=== PATIENT | male | born 1960 | race Caucasian/White ===

== ENCOUNTER 2020-04-07 11:13 | Emergency (ER) | payer MEDICAID, OTHER ==
[~2020-04-07] VITALS: Ht 177.8 cm; Wt 86.2 kg
[~2020-04-07 11:13] MED LIST: BENZ1TAB2 PO; HYDR50TA69 PO; IBUP800T24 PO; LURA80TA PO; TRAZ100T3 PO
[2020-04-07 11:28] VITALS: BP 103/68
[2020-04-07] MEDS ORDERED: HYDROcodone-ACET 5/325MG TAB PO ONE (12:00)
== END 2020-04-07 19:25 | disposition home or self-care (01) ==
LOC: EDBD 11:13 → EDUNIT# 11:13 → ER 11:13
DX: M25.552 Pain in left hip (principal); F41.9 Anxiety disorder, unspecified; F32.9 Major depressive disorder, single episode, unspecified; R07.9 Chest pain, unspecified; W18.39XA Other fall on same level, initial encounter; Y93.01 Activity, walking, marching and hiking; Y92.89 Other specified places as the place of occurrence of the external cause; Y99.8 Other external cause status
CPT/HCPCS: 71045; 73502

== ENCOUNTER 2020-04-08 10:08 | Emergency (ER) | payer MEDICAID ==
[~2020-04-08] VITALS: Ht 182.9 cm; Wt 79.4 kg
[2020-04-08 10:46] VITALS: BP 160/82
== END 2020-04-08 11:13 | disposition home or self-care (01) ==
LOC: ER 10:08
DX: M25.552 Pain in left hip (principal); Z76.0 Encounter for issue of repeat prescription

== ENCOUNTER 2020-04-08 19:50 | Emergency (ER) | payer MEDICAID ==
[~2020-04-08] VITALS: Ht 177.8 cm; Wt 81.6 kg
[2020-04-08 20:54] VITALS: BP 100/70
== END 2020-04-09 00:55 | disposition left against medical advice (07) ==
LOC: EDBD 19:50 → ER 19:50
DX: M25.552 Pain in left hip (principal); Z59.0 Homelessness; Z53.21 Procedure and treatment not carried out due to patient leaving prior to being seen by health care provider; Z20.828 Contact with and (suspected) exposure to other viral communicable diseases
CPT/HCPCS: 36415; 71045; 87426

== ENCOUNTER 2020-04-09 11:04 | Inpatient (IN) | payer MEDICAID ==
[~2020-04-09] VITALS: Ht 188 cm; Wt 70.0 kg
[2020-04-09] MEDS ORDERED: SODIUM CHLORIDE 0.9% 1,000 ML IVB ONE (11:45)
[2020-04-09] MEDS ORDERED: SODIUM CHLORIDE 0.9% 2,000 ML IV ONE (12:00)
[2020-04-09 12:36] LABS: Basophils # (auto) 0 10 ^3/uL (0-0.2); Basophils % (auto) 0.1 % (0.0-2.0); Eosinophils # (auto) 0 10 ^3/uL (0-0.8); Eosinophils % (auto) 0.1 % (0.0-7.0); Hematocrit 36.3 % (41.0-53.0); Hemoglobin 12.6 g/dL (13.5-17.5); Lymphocytes # (auto) 0.4 10 ^3/uL (0.4-5.4); Lymphocytes % (auto) 4.5 % (10.0-50.0); Mean Corpuscular Hemoglobin 32.9 pg (28.0-32.0); Mean Corpuscular Hgb Conc. 34.6 g/dL (32.0-36.0); Monocytes # (auto) 1.4 10 ^3/uL (0-1.3); Neutrophils # (auto) 7.5 10 ^3/uL (1.6-8.6); Neutrophils % (auto) 80.3 % (37.0-80.0); Platelet Count (auto) 155 10^3/uL (140-450); Red Blood Cells 3.82 10^6/uL (4.5-5.90); White Blood Cell 9.3 10^3/uL (4.4-10.8)
[2020-04-09 12:52] LABS: Albumin 3.6 g/dL (3.4-5.0); Anion Gap 13 (5-15); Blood Urea Nitrogen 51 mg/dL (7-18); Calcium 8.2 mg/dL (8.5-10.1); Carbon Dioxide 18 mmol/L (21-32); Chloride 100 mmol/L (98-107); Glucose 70 mg/dL (74-106); Potassium 3.6 mmol/L (3.5-5.1); Sodium 131 mmol/L (136-145)
[2020-04-09 13:05] LABS: Alanine Aminotransferase 44 U/L (16-61); Alkaline Phosphatase 51 U/L (45-117); Aspartate Aminotransferase 89 U/L (15-37); Bilirubin, Total 1.5 mg/dL (0.2-1.0); GFR African American 65 mL/min; GFR Non-African American 54 mL/min; Total Protein 6.6 g/dL (6.4-8.2)
[2020-04-09 13:18] LABS: BUN/Creatinine Ratio 35.7
[2020-04-09] MEDS ORDERED: MORPHINE SULFATE 4 MG/ML SYR/VIAL IV ONE (22:45)
[2020-04-09] MEDS ORDERED: ONDANSETRON HCL 4 MG/2 ML VIAL ONE (22:51)
[2020-04-09] MEDS ORDERED: SODIUM CHLORIDE 0.9% 1,000 ML IV ONE (23:00)
[2020-04-09] MEDS ORDERED: ONDANSETRON HCL 4 MG/2 ML VIAL IV ONE (23:15)
[2020-04-09 23:17] LABS: Amphetamine Screen, Urine NEGATIVE (NEGATIVE); Barbiturate Scree,Urine NEGATIVE (NEGATIVE); Benzodiazephine Screen, Urine NEGATIVE (NEGATIVE); Cannabinoid Screen, Urine NEGATIVE (NEGATIVE); Cocaine Screen, Urine NEGATIVE (NEGATIVE); Opiate Scree,Urine NEGATIVE (NEGATIVE); Phencyclidine Screen, Urine NEGATIVE (NEGATIVE)
[2020-04-10] MEDS ORDERED: ONDANSETRON HCL 4 MG/2 ML VIAL IV PRN (00:30)
[2020-04-10] MEDS ORDERED: ALBUMIN 5% 250 ML IV ONE (00:30)
[2020-04-10] MEDS: chlordiazePOXIDE HCL 25 MG CAP PO PRN (02:50)
[2020-04-10 06:57] LABS: Basophils # (auto) 0 10 ^3/uL (0-0.2); Basophils % (auto) 0.5 % (0.0-2.0); Eosinophils # (auto) 0.1 10 ^3/uL (0-0.8); Eosinophils % (auto) 1.2 % (0.0-7.0); Hematocrit 36.4 % (41.0-53.0); Hemoglobin 12.1 g/dL (13.5-17.5); Lymphocytes # (auto) 0.7 10 ^3/uL (0.4-5.4); Lymphocytes % (auto) 14.9 % (10.0-50.0); Mean Corpuscular Hemoglobin 32.1 pg (28.0-32.0); Mean Corpuscular Hgb Conc. 33.3 g/dL (32.0-36.0); Mean Corpuscular Volume 96.4 fL (80.0-100.0); Monocytes # (auto) 0.8 10 ^3/uL (0-1.3); Neutrophils # (auto) 3.3 10 ^3/uL (1.6-8.6); Neutrophils % (auto) 67.4 % (37.0-80.0); Platelet Count (auto) 138 10^3/uL (140-450); Red Blood Cells 3.77 10^6/uL (4.5-5.90); Red Cell Distribution Width 16.1 % (11.8-14.3); White Blood Cell 4.9 10^3/uL (4.4-10.8)
[2020-04-10 07:08] LABS: Potassium 4.1 mmol/L (3.5-5.1)
[2020-04-10 07:11] LABS: BUN/Creatinine Ratio 43.5; Calcium 7.9 mg/dL (8.5-10.1)
[2020-04-10] MEDS: HYDROcodone-ACET 5/325MG TAB PO PRN ×2 (08:23→22:49)
[2020-04-10] MEDS: FAMOTIDINE 20 MG TAB PO SCH ×2 (10:27→22:00)
[2020-04-10] MEDS: ENOXAPARIN SOD 40 MG/0.4 ML SYRINGE SC SCH (10:28)
[2020-04-10] MEDS: FOLIC ACID 1 MG, MULTIPLE VITAMIN 10 ML, MAGNESIUM SULF SDV 50% 8 MEQ, THIAMINE INJ 100... INJ SCH ×5 (16:49)
[2020-04-11] MEDS: ENOXAPARIN SOD 40 MG/0.4 ML SYRINGE SC SCH (08:55)
[2020-04-11] MEDS: FAMOTIDINE 20 MG TAB PO SCH ×2 (08:55→22:29)
[2020-04-11] MEDS: HYDROcodone-ACET 5/325MG TAB PO PRN ×3 (09:08→17:11)
[2020-04-11] MEDS: FOLIC ACID 1 MG, MULTIPLE VITAMIN 10 ML, MAGNESIUM SULF SDV 50% 8 MEQ, THIAMINE INJ 100... INJ SCH ×5 (12:40)
[2020-04-11] MEDS: NICOTINE 21MG/24 HR TOPICAL PATCH TD SCH (13:35)
[2020-04-11] MEDS ORDERED: LORazepam 2MG/ML-1ML VIAL ONE (18:29)
[2020-04-11] MEDS ORDERED: LORazepam 2MG/ML-1ML VIAL IV ONE ×3 (19:00→19:15)
[2020-04-11] MEDS ORDERED: diphenhdrAMINE HCL 50 MG/1 ML VL IV ONE ×2 (19:00→19:15)
[2020-04-11 20:13] VITALS: BP 148/87
[2020-04-11 22:00] VITALS: BP 139/79
[2020-04-11] MEDS: chlordiazePOXIDE HCL 25 MG CAP PO PRN (22:18)
[2020-04-11 22:30] VITALS: BP 148/87
[2020-04-11] MEDS: LORazepam 2MG/ML-1ML VIAL IV PRN (22:30)
[2020-04-12] MEDS: TEMAZEPAM 15 MG CAP PO PRN (00:01)
[2020-04-12] MEDS: LORazepam 2MG/ML-1ML VIAL IV PRN ×4 (02:40→20:46)
[2020-04-12 05:00] VITALS: BP 147/87
[2020-04-12 09:00] VITALS: BP 146/86
[2020-04-12] MEDS: FAMOTIDINE 20 MG TAB PO SCH ×2 (09:31→22:00)
[2020-04-12] MEDS: NICOTINE 21MG/24 HR TOPICAL PATCH TD SCH (09:32)
[2020-04-12] MEDS: ENOXAPARIN SOD 40 MG/0.4 ML SYRINGE SC SCH (09:32)
[2020-04-12] MEDS: chlordiazePOXIDE HCL 25 MG CAP PO SCH ×3 (11:27→23:45)
[2020-04-12] MEDS: ACETAMINOPHEN 325 MG TAB PO PRN (11:28)
[2020-04-12 13:00] VITALS: BP 137/83
[2020-04-12 17:00] VITALS: BP 131/73
[2020-04-12] MEDS: HYDROcodone-ACET 5/325MG TAB PO PRN (20:45)
[2020-04-12 22:00] VITALS: BP 130/87
[2020-04-13 05:00] VITALS: BP 122/70
[2020-04-13] MEDS: chlordiazePOXIDE HCL 25 MG CAP PO SCH ×3 (05:53→17:10)
[2020-04-13 08:30] VITALS: BP 113/77
[2020-04-13] MEDS: FAMOTIDINE 20 MG TAB PO SCH ×2 (09:17→21:50)
[2020-04-13] MEDS: ENOXAPARIN SOD 40 MG/0.4 ML SYRINGE SC SCH (09:17)
[2020-04-13] MEDS: NICOTINE 21MG/24 HR TOPICAL PATCH TD SCH (09:18)
[2020-04-13] MEDS: HYDROcodone-ACET 5/325MG TAB PO PRN (09:18)
[2020-04-13 11:10] LABS: Basophils # (auto) 0 10 ^3/uL (0-0.2); Basophils % (auto) 0.2 % (0.0-2.0); Eosinophils # (auto) 0.4 10 ^3/uL (0-0.8); Eosinophils % (auto) 7.4 % (0.0-7.0); Hematocrit 33.4 % (41.0-53.0); Hemoglobin 11.8 g/dL (13.5-17.5); Lymphocytes # (auto) 0.7 10 ^3/uL (0.4-5.4); Lymphocytes % (auto) 12.7 % (10.0-50.0); Mean Corpuscular Hemoglobin 33.4 pg (28.0-32.0); Mean Corpuscular Hgb Conc. 35.3 g/dL (32.0-36.0); Mean Corpuscular Volume 94.6 fL (80.0-100.0); Monocytes # (auto) 0.9 10 ^3/uL (0-1.3); Monocytes % (auto) 16.1 % (0.0-12.0); Neutrophils # (auto) 3.4 10 ^3/uL (1.6-8.6); Neutrophils % (auto) 63.6 % (37.0-80.0); Nucleated Red Blood Cells % 0.1 %; Platelet Count (auto) 165 10^3/uL (140-450); Red Blood Cells 3.53 10^6/uL (4.5-5.90); Red Cell Distribution Width 15.9 % (11.8-14.3); White Blood Cell 5.4 10^3/uL (4.4-10.8)
[2020-04-13 11:37] LABS: Albumin 2.6 g/dL (3.4-5.0)
[2020-04-13 11:41] LABS: BUN/Creatinine Ratio 14.1; Bilirubin, Total 0.4 mg/dL (0.2-1.0); Total Protein 6.1 g/dL (6.4-8.2)
[2020-04-13 12:30] VITALS: BP 110/61
[2020-04-13] MEDS: HYDROcodone-ACET 7.5/325MG TAB PO PRN ×2 (15:37→21:51)
[2020-04-13 16:51] VITALS: BP 136/83
[2020-04-13] MEDS: TEMAZEPAM 15 MG CAP PO PRN (21:51)
[2020-04-13 22:00] VITALS: BP 101/56
[2020-04-14] MEDS: chlordiazePOXIDE HCL 25 MG CAP PO SCH ×5 (00:29→23:41)
[2020-04-14] MEDS: HYDROcodone-ACET 7.5/325MG TAB PO PRN ×3 (03:45→22:02)
[2020-04-14 05:18] VITALS: BP 109/50
[2020-04-14 06:54] LABS: Hematocrit 34.7 % (41.0-53.0); Hemoglobin 11.9 g/dL (13.5-17.5); Mean Corpuscular Hemoglobin 32.5 pg (28.0-32.0); Mean Corpuscular Hgb Conc. 34.4 g/dL (32.0-36.0); Mean Corpuscular Volume 94.4 fL (80.0-100.0); Platelet Count (auto) 183 10^3/uL (140-450); Red Blood Cells 3.67 10^6/uL (4.5-5.90); Red Cell Distribution Width 16.1 % (11.8-14.3); White Blood Cell 4.9 10^3/uL (4.4-10.8)
[2020-04-14 06:57] LABS: Band Neutrophils % (manual) 0; Basophils % (manual) 0 (0.0-2.0); Blast Cells 0; Metamyelocytes % 0; Myelocytes % 0; Promyelocytes % 0; Reactive Lymphocytes 0
[2020-04-14 07:28] LABS: Eosinophils % (manual) 11 (0-7); Lymphocytes % (manual) 13 (10.0-50.0); Monocytes % (manual) 23 (0-12)
[2020-04-14] MEDS: ACETAMINOPHEN 325 MG TAB PO PRN ×3 (08:01→21:49)
[2020-04-14 09:00] VITALS: BP 105/62
[2020-04-14] MEDS: NICOTINE 21MG/24 HR TOPICAL PATCH TD SCH (11:24)
[2020-04-14] MEDS: FAMOTIDINE 20 MG TAB PO SCH ×2 (11:24→22:00)
[2020-04-14] MEDS: ENOXAPARIN SOD 40 MG/0.4 ML SYRINGE SC SCH (11:24)
[2020-04-14 12:00] VITALS: BP 90/66
[2020-04-14 17:00] VITALS: BP 102/46
[2020-04-14 18:27] VITALS: BP 95/59
[2020-04-14] MEDS: LORazepam 2MG/ML-1ML VIAL IV PRN (19:50)
[2020-04-14 22:00] VITALS: BP 95/108
[2020-04-14] MEDS: TEMAZEPAM 15 MG CAP PO PRN (22:00)
[2020-04-15] MEDS: LORazepam 2MG/ML-1ML VIAL IV PRN (02:39)
[2020-04-15 05:00] VITALS: BP 107/64
[2020-04-15] MEDS: HYDROcodone-ACET 7.5/325MG TAB PO PRN ×2 (05:27→16:20)
[2020-04-15] MEDS: chlordiazePOXIDE HCL 25 MG CAP PO SCH ×3 (05:27→18:00)
[2020-04-15 05:36] LABS: Hemoglobin 11.6 g/dL (13.5-17.5); Mean Corpuscular Hemoglobin 32.2 pg (28.0-32.0); Mean Corpuscular Hgb Conc. 34.2 g/dL (32.0-36.0); Mean Corpuscular Volume 94.2 fL (80.0-100.0); Platelet Count (auto) 209 10^3/uL (140-450); Red Cell Distribution Width 15.8 % (11.8-14.3); White Blood Cell 5.3 10^3/uL (4.4-10.8)
[2020-04-15 06:01] LABS: BUN/Creatinine Ratio 23.4; Calcium 8.9 mg/dL (8.5-10.1); Potassium 3.8 mmol/L (3.5-5.1)
[2020-04-15 06:11] LABS: Band Neutrophils % (manual) 0; Basophils % (manual) 0 (0.0-2.0); Blast Cells 0; Myelocytes % 0; Promyelocytes % 0; Reactive Lymphocytes 0
[2020-04-15 07:16] LABS: Eosinophils % (manual) 4 (0-7); Lymphocytes % (manual) 13 (10.0-50.0); Metamyelocytes % 1; Monocytes % (manual) 19 (0-12)
[2020-04-15 08:00] VITALS: BP 114/71
[2020-04-15] MEDS: ENOXAPARIN SOD 40 MG/0.4 ML SYRINGE SC SCH (10:00)
[2020-04-15] MEDS: FAMOTIDINE 20 MG TAB PO SCH (10:00)
[2020-04-15] MEDS: NICOTINE 21MG/24 HR TOPICAL PATCH TD SCH (10:00)
[2020-04-15] MEDS: ACETAMINOPHEN 325 MG TAB PO PRN (12:10)
[2020-04-15 16:56] VITALS: BP 112/62
[2020-04-15 20:24] VITALS: BP 120/82
== END 2020-04-15 21:55 | disposition home or self-care (01) | DRG 342 ==
LOC: ER 11:04 → EDBD 11:04 → OVERFLOW 11:05 → CENTRAL 04-11 20:00
PROVIDERS: ADMIT Nurse Practitioner; ATTEND Internal Medicine
DX: S92.332A Displaced fracture of third metatarsal bone, left foot, initial encounter for closed fracture (principal); N17.0 Acute kidney failure with tubular necrosis; G93.41 Metabolic encephalopathy; F10.231 Alcohol dependence with withdrawal delirium; I95.9 Hypotension, unspecified; E87.1 Hypo-osmolality and hyponatremia; F20.9 Schizophrenia, unspecified; S32.302A Unspecified fracture of left ilium, initial encounter for closed fracture; N18.9 Chronic kidney disease, unspecified; F17.210 Nicotine dependence, cigarettes, uncomplicated; Z20.828 Contact with and (suspected) exposure to other viral communicable diseases; M16.10 Unilateral primary osteoarthritis, unspecified hip; F32.9 Major depressive disorder, single episode, unspecified; F41.9 Anxiety disorder, unspecified; Y90.8 Blood alcohol level of 240 mg/100 ml or more; F10.229 Alcohol dependence with intoxication, unspecified; W18.39XA Other fall on same level, initial encounter; Y93.89 Activity, other specified; Z71.6 Tobacco abuse counseling; Y92.89 Other specified places as the place of occurrence of the external cause; Z86.73 Personal history of transient ischemic attack (TIA), and cerebral infarction without residual deficits; Z59.0 Homelessness; Y99.8 Other external cause status
CPT/HCPCS: 36415; 70450; 71045; 73502; 73620; 80048; 80053; 80307; 80320; 82150; 83690; 84484; 85007; 85025; 85027; 87040; 87426; 97110; 97116; 97163; 97530; A4565; G0378; J2405

== ENCOUNTER 2020-04-17 12:56 | Emergency (ER) | payer MEDICAID ==
[~2020-04-17] VITALS: Ht 182.9 cm; Wt 79.4 kg
[2020-04-17 13:41] VITALS: BP 110/80
[2020-04-17] MEDS ORDERED: KETOROLAC TROMETH 60MG/2ML VIAL IM ONE (16:00)
== END 2020-04-17 16:18 | disposition home or self-care (01) ==
LOC: ER 12:56
DX: M25.552 Pain in left hip (principal); Z76.0 Encounter for issue of repeat prescription; F41.9 Anxiety disorder, unspecified; F32.9 Major depressive disorder, single episode, unspecified; F17.210 Nicotine dependence, cigarettes, uncomplicated; F10.20 Alcohol dependence, uncomplicated; Z79.899 Other long term (current) drug therapy; Y90.9 Presence of alcohol in blood, level not specified
CPT/HCPCS: 96372; 99283; J1885

== ENCOUNTER 2020-05-30 11:38 | Inpatient (IN) | payer MEDICAID ==
[~2020-05-30] VITALS: Ht 182.9 cm; Wt 74.0 kg
[~2020-05-30 11:38] MED LIST changes: -IBUP800T24 PO; +IBUP800T27 PO
[2020-05-30] MEDS ORDERED: SODIUM CHLORIDE 0.9% 1,000 ML IV ONE ×3 (11:45→17:30)
[2020-05-30] MEDS ORDERED: THIAMINE 100mg/ml INJ (200mg/2ml VIAL) IV ONE (11:45)
[2020-05-30 12:19] LABS: Hematocrit 35.9 % (41.0-53.0); Hemoglobin 12.3 g/dL (13.5-17.5); Mean Corpuscular Hemoglobin 32.9 pg (28.0-32.0); Mean Corpuscular Hgb Conc. 34.1 g/dL (32.0-36.0); Mean Corpuscular Volume 96.4 fL (80.0-100.0); Platelet Count (auto) 219 10^3/uL (140-450); Red Blood Cells 3.73 10^6/uL (4.5-5.90); Red Cell Distribution Width 17.2 % (11.8-14.3); White Blood Cell 4.6 10^3/uL (4.4-10.8)
[2020-05-30 12:32] LABS: Albumin 3.1 g/dL (3.4-5.0); Calcium 7.5 mg/dL (8.5-10.1); Potassium 3.4 mmol/L (3.5-5.1)
[2020-05-30 12:34] LABS: Band Neutrophils % (manual) 0; Basophils % (manual) 0 (0.0-2.0); Blast Cells 0; Metamyelocytes % 0; Myelocytes % 0; Promyelocytes % 0; Reactive Lymphocytes 0
[2020-05-30 12:35] LABS: BUN/Creatinine Ratio 19.2; Bilirubin, Total 0.2 mg/dL (0.2-1.0); Total Protein 6.6 g/dL (6.4-8.2)
[2020-05-30 13:42] LABS: Eosinophils % (manual) 6 (0-7); Lymphocytes % (manual) 17 (10.0-50.0); Monocytes % (manual) 13 (0-12)
[2020-05-30 15:06] LABS: Urine Bacteria FEW /hpf (None Seen); Urine Blood Negative /uL (Negative); Urine Specific Gravity 1.006 (1.001-1.035); Urine WBC <1 /hpf (0 - 3)
[2020-05-30 15:11] LABS: Amphetamine Screen, Urine NEGATIVE (NEGATIVE); Benzodiazephine Screen, Urine NEGATIVE (NEGATIVE); Cannabinoid Screen, Urine NEGATIVE (NEGATIVE); Cocaine Screen, Urine NEGATIVE (NEGATIVE)
[2020-05-30 15:20] LABS: Barbiturate Scree,Urine NEGATIVE (NEGATIVE); Opiate Scree,Urine NEGATIVE (NEGATIVE); Phencyclidine Screen, Urine NEGATIVE (NEGATIVE)
[2020-05-30] MEDS ORDERED: NITROGLYCERIN 0.4 MG SL TAB SL PRN (17:30)
[2020-05-30] MEDS ORDERED: LABETALOL HCL 5 MG/ML 4ML SYRINGE IV PRN (17:30)
[2020-05-30] MEDS ORDERED: ONDANSETRON HCL 4 MG/2 ML VIAL IV PRN (17:30)
[2020-05-30] MEDS ORDERED: TETANUS-DIPTH-ACEL PERTUSSIS 0.5ML SYR Tdap IM ONE (17:30)
[2020-05-30] MEDS ORDERED: MORPHINE SULF INJ 2 MG/ML SYRINGE 1ML IV PRN (17:30)
[2020-05-30] MEDS ORDERED: POTASSIUM CHL 20MEQ/100ML 100 ML IV SCH (17:30)
[2020-05-30] MEDS: SODIUM CHLORIDE 0.9% 1,000 ML IV SCH (18:08)
[2020-05-30] MEDS: POTASSIUM CHL 20MEQ/100ML 100 ML IV SCH ×2 (18:28→21:08)
[2020-05-30] MEDS: MORPHINE SULF INJ 2 MG/ML SYRINGE 1ML IV PRN (20:45)
[2020-05-30] MEDS: LORazepam 2MG/ML-1ML VIAL IV PRN (20:50)
[2020-05-30] MEDS ORDERED: LORazepam 2MG/ML-1ML VIAL IV ONE (22:30)
[2020-05-31 05:40] VITALS: BP 145/86
[2020-05-31] MEDS: SODIUM CHLORIDE 0.9% 1,000 ML IV SCH ×3 (06:45→23:47)
[2020-05-31 09:00] VITALS: BP 153/92
[2020-05-31 09:34] LABS: Basophils # (auto) 0 10 ^3/uL (0-0.2); Basophils % (auto) 0.7 % (0.0-2.0); Eosinophils # (auto) 0.2 10 ^3/uL (0-0.8); Eosinophils % (auto) 4.7 % (0.0-7.0); Hematocrit 31.6 % (41.0-53.0); Hemoglobin 10.7 g/dL (13.5-17.5); Lymphocytes # (auto) 0.6 10 ^3/uL (0.4-5.4); Lymphocytes % (auto) 16.8 % (10.0-50.0); Mean Corpuscular Hemoglobin 32.5 pg (28.0-32.0); Mean Corpuscular Volume 95.6 fL (80.0-100.0); Monocytes # (auto) 0.3 10 ^3/uL (0-1.3); Monocytes % (auto) 9.2 % (0.0-12.0); Neutrophils # (auto) 2.6 10 ^3/uL (1.6-8.6); Neutrophils % (auto) 68.6 % (37.0-80.0); Nucleated Red Blood Cells % 0.1 %; Platelet Count (auto) 173 10^3/uL (140-450); Red Blood Cells 3.31 10^6/uL (4.5-5.90); Red Cell Distribution Width 16.8 % (11.8-14.3); White Blood Cell 3.7 10^3/uL (4.4-10.8)
[2020-05-31] MEDS: THIAMINE 100mg/ml INJ (200mg/2ml VIAL) IV SCH (09:40)
[2020-05-31] MEDS: PANTOPRAZOLE 40 MG/10 ML VIAL INJ IV SCH (09:40)
[2020-05-31] MEDS: ENOXAPARIN SOD 40 MG/0.4 ML SYRINGE SC SCH (09:40)
[2020-05-31 09:44] LABS: Calcium 7.5 mg/dL (8.5-10.1); Potassium 4.1 mmol/L (3.5-5.1)
[2020-05-31 09:48] LABS: BUN/Creatinine Ratio 10.9; Bilirubin, Total 0.3 mg/dL (0.2-1.0); Total Protein 6.2 g/dL (6.4-8.2)
[2020-05-31] MEDS: MORPHINE SULF INJ 2 MG/ML SYRINGE 1ML IV PRN ×2 (11:30→17:53)
[2020-05-31] MEDS ORDERED: DEXTROSE (50%) 50ML SYRG IV PRN (12:30)
[2020-05-31 13:00] VITALS: BP 153/84
[2020-05-31 17:00] VITALS: BP 134/82
[2020-05-31] MEDS: InsuLIN REG 1unit/0.01ml Soln (100units/ml) SC SCH ×2 (17:00→22:00)
[2020-05-31] MEDS: ACCU-CHEK COMFORT CURVE STRIP VI SCH ×2 (17:00→22:05)
[2020-05-31] MEDS: chlordiazePOXIDE HCL 25 MG CAP PO SCH ×2 (17:53→23:47)
[2020-05-31] MEDS: Glucerna Carbsteady SHAKE Vanilla 8oz PO SCH (18:13)
[2020-05-31 22:18] VITALS: BP 139/88
[2020-06-01] MEDS: LORazepam 2MG/ML-1ML VIAL IV PRN (01:21)
[2020-06-01] MEDS: MORPHINE SULF INJ 2 MG/ML SYRINGE 1ML IV PRN ×2 (04:37→20:48)
[2020-06-01 05:25] VITALS: BP 146/89
[2020-06-01] MEDS: chlordiazePOXIDE HCL 25 MG CAP PO SCH ×4 (05:34→23:08)
[2020-06-01] MEDS: InsuLIN REG 1unit/0.01ml Soln (100units/ml) SC SCH ×2 (05:40→11:30)
[2020-06-01] MEDS: ACCU-CHEK COMFORT CURVE STRIP VI SCH ×2 (05:40→11:30)
[2020-06-01 05:45] LABS: Basophils # (auto) 0 10 ^3/uL (0-0.2); Basophils % (auto) 0.5 % (0.0-2.0); Eosinophils # (auto) 0.3 10 ^3/uL (0-0.8); Eosinophils % (auto) 9.1 % (0.0-7.0); Hematocrit 30.1 % (41.0-53.0); Hemoglobin 10.3 g/dL (13.5-17.5); Lymphocytes # (auto) 0.8 10 ^3/uL (0.4-5.4); Lymphocytes % (auto) 22.1 % (10.0-50.0); Mean Corpuscular Hemoglobin 32.5 pg (28.0-32.0); Mean Corpuscular Hgb Conc. 34.2 g/dL (32.0-36.0); Mean Corpuscular Volume 95.1 fL (80.0-100.0); Monocytes # (auto) 0.4 10 ^3/uL (0-1.3); Monocytes % (auto) 11.7 % (0.0-12.0); Neutrophils % (auto) 56.6 % (37.0-80.0); Nucleated Red Blood Cells % 0.2 %; Platelet Count (auto) 134 10^3/uL (140-450); Red Blood Cells 3.16 10^6/uL (4.5-5.90); Red Cell Distribution Width 16.8 % (11.8-14.3); White Blood Cell 3.5 10^3/uL (4.4-10.8)
[2020-06-01 06:11] LABS: Albumin 2.7 g/dL (3.4-5.0); Potassium 3.8 mmol/L (3.5-5.1)
[2020-06-01 06:14] LABS: BUN/Creatinine Ratio 15.4; Bilirubin, Total 0.7 mg/dL (0.2-1.0); Total Protein 5.7 g/dL (6.4-8.2)
[2020-06-01 07:46] VITALS: BP 140/88
[2020-06-01] MEDS: Glucerna Carbsteady SHAKE Vanilla 8oz PO SCH ×3 (08:51→17:50)
[2020-06-01] MEDS: SODIUM CHLORIDE 0.9% 1,000 ML IV SCH ×2 (09:58→19:34)
[2020-06-01] MEDS: THIAMINE 100mg/ml INJ (200mg/2ml VIAL) IV SCH (10:05)
[2020-06-01] MEDS: PANTOPRAZOLE 40 MG/10 ML VIAL INJ IV SCH (10:05)
[2020-06-01] MEDS: ENOXAPARIN SOD 40 MG/0.4 ML SYRINGE SC SCH (10:05)
[2020-06-01] MEDS: MULTIPLE VITAMIN TAB PO SCH (10:05)
[2020-06-01] MEDS: BACITRACIN TOP OINT 1 UD PKG TOP SCH (10:06)
[2020-06-01] MEDS ORDERED: FOLIC ACID 1 MG, MAGNESIUM SULF SDV 50% 8 MEQ, THIAMINE INJ 100 MG in SODIUM CHLORIDE 0... INJ SCH (12:00)
[2020-06-01 12:46] VITALS: BP 137/76
[2020-06-01 16:43] VITALS: BP 161/98
[2020-06-01 22:00] VITALS: BP 141/85
[2020-06-02] MEDS: LORazepam 2MG/ML-1ML VIAL IV PRN (01:06)
[2020-06-02 04:52] VITALS: BP 146/81
[2020-06-02] MEDS: chlordiazePOXIDE HCL 25 MG CAP PO SCH (05:11)
[2020-06-02] MEDS: SODIUM CHLORIDE 0.9% 1,000 ML IV SCH (05:11)
[2020-06-02 07:39] LABS: Potassium 3.9 mmol/L (3.5-5.1)
[2020-06-02 07:50] LABS: Calcium 8.6 mg/dL (8.5-10.1)
[2020-06-02 09:52] LABS: Basophils # (auto) 0 10 ^3/uL (0-0.2); Basophils % (auto) 0.4 % (0.0-2.0); Eosinophils # (auto) 0.3 10 ^3/uL (0-0.8); Eosinophils % (auto) 9.1 % (0.0-7.0); Hematocrit 32.2 % (41.0-53.0); Hemoglobin 11.2 g/dL (13.5-17.5); Lymphocytes # (auto) 0.3 10 ^3/uL (0.4-5.4); Lymphocytes % (auto) 9.4 % (10.0-50.0); Mean Corpuscular Hemoglobin 32.9 pg (28.0-32.0); Mean Corpuscular Hgb Conc. 34.7 g/dL (32.0-36.0); Mean Corpuscular Volume 94.8 fL (80.0-100.0); Monocytes # (auto) 0.4 10 ^3/uL (0-1.3); Monocytes % (auto) 12.1 % (0.0-12.0); Neutrophils # (auto) 2.5 10 ^3/uL (1.6-8.6); Platelet Count (auto) 138 10^3/uL (140-450); Red Cell Distribution Width 16.7 % (11.8-14.3); White Blood Cell 3.6 10^3/uL (4.4-10.8)
[2020-06-02] MEDS: BACITRACIN TOP OINT 1 UD PKG TOP SCH (09:55)
[2020-06-02] MEDS: MULTIPLE VITAMIN TAB PO SCH (09:55)
[2020-06-02] MEDS: THIAMINE 100mg/ml INJ (200mg/2ml VIAL) IV SCH (09:55)
[2020-06-02] MEDS: MORPHINE SULF INJ 2 MG/ML SYRINGE 1ML IV PRN (09:56)
[2020-06-02] MEDS: ENOXAPARIN SOD 40 MG/0.4 ML SYRINGE SC SCH (09:56)
[2020-06-02] MEDS: PANTOPRAZOLE 40 MG/10 ML VIAL INJ IV SCH (09:56)
[2020-06-02] MEDS: Glucerna Carbsteady SHAKE Vanilla 8oz PO SCH (09:56)
[2020-06-02] MEDS ORDERED: NICOTINE 14 MG/24HR TOPICAL PATCH TD ONE (11:30)
[2020-06-03] MEDS ORDERED: NICOTINE 14 MG/24HR TOPICAL PATCH TD SCH (10:00)
[2020-06-08] MEDS ORDERED: ALBUAER3 IN (09:25)
[2020-06-08] MEDS ORDERED: THIA100T5 PO (09:25)
[2020-06-08] MEDS ORDERED: MULT-351 PO (09:25)
== END 2020-06-02 13:18 | disposition left against medical advice (07) | DRG 816 ==
LOC: EDUNIT# 11:38 → EDBD 11:38 → ER 11:38 → TELE 11:39 → DOU IN ADS 05-31 05:40 → TELE-EAST 06-01 17:45
PROVIDERS: ADMIT Family Medicine; ATTEND Internal Medicine
DX: T51.91XA Toxic effect of unspecified alcohol, accidental (unintentional), initial encounter (principal); J96.91 Respiratory failure, unspecified with hypoxia; G92 Toxic encephalopathy; F10.221 Alcohol dependence with intoxication delirium; E44.1 Mild protein-calorie malnutrition; E11.21 Type 2 diabetes mellitus with diabetic nephropathy; Z20.822 Contact with and (suspected) exposure to COVID-19; E86.0 Dehydration; E87.6 Hypokalemia; S00.81XA Abrasion of other part of head, initial encounter; J32.0 Chronic maxillary sinusitis; F17.210 Nicotine dependence, cigarettes, uncomplicated; F31.9 Bipolar disorder, unspecified; Y90.8 Blood alcohol level of 240 mg/100 ml or more; W19.XXXA Unspecified fall, initial encounter; Z79.899 Other long term (current) drug therapy; Z59.0 Homelessness; Z86.73 Personal history of transient ischemic attack (TIA), and cerebral infarction without residual deficits; Y92.89 Other specified places as the place of occurrence of the external cause; Z53.29 Procedure and treatment not carried out because of patient's decision for other reasons
CPT/HCPCS: 36415; 70450; 71045; 73502; 80048; 80053; 80307; 80320; 81001; 82962; 83036; 84443; 84484; 85007; 85025; 85027; 87426; 90715; 93005; C9113; G0378; J2405; J3480; J3490

== ENCOUNTER 2020-06-02 14:23 | Emergency (ER) | payer MEDICAID ==
[~2020-06-02] VITALS: Ht 182.9 cm; Wt 76.2 kg
[2020-06-02] MEDS ORDERED: SODIUM CHLORIDE 0.9% 2,000 ML IV ONE (16:45)
[2020-06-02] MEDS ORDERED: THIAMINE 100mg/ml INJ (200mg/2ml VIAL) IV ONE (16:45)
[2020-06-02] MEDS ORDERED: FOLIC ACID 1 MG, MAGNESIUM SULF SDV 50% 8 MEQ, THIAMINE INJ 100 MG in SODIUM CHLORIDE 0... INJ SCH (16:45)
[2020-06-02 19:53] LABS: Basophils # (auto) 0.1 10 ^3/uL (0-0.2); Basophils % (auto) 1.1 % (0.0-2.0); Eosinophils # (auto) 0.5 10 ^3/uL (0-0.8); Eosinophils % (auto) 11.5 % (0.0-7.0); Hematocrit 34.9 % (41.0-53.0); Hemoglobin 11.8 g/dL (13.5-17.5); Lymphocytes # (auto) 1.2 10 ^3/uL (0.4-5.4); Lymphocytes % (auto) 25.6 % (10.0-50.0); Mean Corpuscular Hemoglobin 31.9 pg (28.0-32.0); Mean Corpuscular Hgb Conc. 33.7 g/dL (32.0-36.0); Mean Corpuscular Volume 94.6 fL (80.0-100.0); Monocytes # (auto) 0.7 10 ^3/uL (0-1.3); Monocytes % (auto) 14.3 % (0.0-12.0); Neutrophils # (auto) 2.2 10 ^3/uL (1.6-8.6); Neutrophils % (auto) 47.5 % (37.0-80.0); Nucleated Red Blood Cells % 0.4 %; Red Blood Cells 3.69 10^6/uL (4.5-5.90); Red Cell Distribution Width 16.8 % (11.8-14.3); White Blood Cell 4.6 10^3/uL (4.4-10.8)
[2020-06-02 20:07] LABS: Magnesium 1.9 mg/dL (1.6-2.6); Potassium 3.6 mmol/L (3.5-5.1)
[2020-06-02 20:11] LABS: BUN/Creatinine Ratio 9.9; Bilirubin, Total 0.3 mg/dL (0.2-1.0); Total Protein 6.9 g/dL (6.4-8.2)
[2020-06-02] MEDS ORDERED: SODIUM CHLORIDE 0.9% 1,000 ML IV ONE (22:15)
[2020-06-02 23:00] VITALS: BP 144/82
[2020-06-08] MEDS ORDERED: THIA100T5 PO (09:25)
[2020-06-08] MEDS ORDERED: ALBUAER3 IN (09:25)
[2020-06-08] MEDS ORDERED: MULT-351 PO (09:25)
== END 2020-06-02 23:00 | disposition home or self-care (01) ==
LOC: ER 14:23
DX: S32.302 Unspecified fracture of left ilium (principal); F10.920 Alcohol use, unspecified with intoxication, uncomplicated; F17.210 Nicotine dependence, cigarettes, uncomplicated; Z79.899 Other long term (current) drug therapy; Z59.0 Homelessness; X58.XXXA Exposure to other specified factors, initial encounter; Y93.89 Activity, other specified; Y92.89 Other specified places as the place of occurrence of the external cause; Y99.8 Other external cause status
CPT/HCPCS: 36415; 71045; 72192; 80053; 80320; 83735; 85025; 96361; 96374; 99285; J3411; J3475; J7030

== ENCOUNTER 2020-06-06 12:15 | Inpatient (IN) | payer MEDICAID ==
[~2020-06-06] VITALS: Ht 172.7 cm; Wt 60.6 kg
[2020-06-06] MEDS ORDERED: SODIUM CHLORIDE 0.9% 1,000 ML IVB ONE (12:30)
[2020-06-06] MEDS ORDERED: SODIUM CHLORIDE 0.9% 2,000 ML IV ONE (13:00)
[2020-06-06] MEDS ORDERED: SODIUM CHLORIDE 0.9% 1,000 ML IV ONE (13:00)
[2020-06-06 13:41] LABS: Lactic Acid w/Reflex 2.9 mmol/L (0.4-2.0)
[2020-06-06 13:43] LABS: Hematocrit 30.1 % (41.0-53.0); Hemoglobin 10.3 g/dL (13.5-17.5); Mean Corpuscular Hemoglobin 32.7 pg (28.0-32.0); Mean Corpuscular Hgb Conc. 34.1 g/dL (32.0-36.0); Platelet Count (auto) 172 10^3/uL (140-450); Red Blood Cells 3.14 10^6/uL (4.5-5.90); Red Cell Distribution Width 17.8 % (11.8-14.3); White Blood Cell 4.1 10^3/uL (4.4-10.8)
[2020-06-06 13:46] LABS: Band Neutrophils % (manual) 0; Basophils % (manual) 0 (0.0-2.0); Blast Cells 0; Metamyelocytes % 0; Myelocytes % 0; Promyelocytes % 0; Reactive Lymphocytes 0
[2020-06-06 13:55] LABS: Albumin 2.9 g/dL (3.4-5.0); Calcium 7.8 mg/dL (8.5-10.1); Potassium 3.7 mmol/L (3.5-5.1)
[2020-06-06 13:59] LABS: BUN/Creatinine Ratio 19.3; Bilirubin, Total 0.2 mg/dL (0.2-1.0); Total Protein 6.2 g/dL (6.4-8.2)
[2020-06-06 14:23] LABS: Eosinophils % (manual) 5 (0-7); Lymphocytes % (manual) 21 (10.0-50.0); Monocytes % (manual) 12 (0-12)
[2020-06-06] MEDS ORDERED: cefTRIAXone 1GM/50ML D5W 50 ML IV ONE (15:15)
[2020-06-06] MEDS ORDERED: NITROGLYCERIN 0.4 MG SL TAB SL PRN (16:00)
[2020-06-06] MEDS ORDERED: MORPHINE SULF INJ 2 MG/ML SYRINGE 1ML IV PRN ×2 (16:00→17:15)
[2020-06-06] MEDS ORDERED: THIAMINE 100mg/ml INJ (200mg/2ml VIAL) IV ONE (16:00)
[2020-06-06] MEDS ORDERED: chlordiazePOXIDE HCL 25 MG CAP PO PRN (16:00)
[2020-06-06 16:14] LABS: Urine Bacteria FEW /hpf (None Seen); Urine Blood Negative /uL (Negative); Urine Specific Gravity 1.003 (1.001-1.035); Urine WBC <1 /hpf (0 - 3)
[2020-06-06] MEDS ORDERED: ALBUTEROL SULF 2.5 MG/0.5ML(0.5%) NEB SOLN NEB PRN (17:15)
[2020-06-06] MEDS ORDERED: TEMAZEPAM 15 MG CAP PO PRN (17:15)
[2020-06-06] MEDS ORDERED: ACETAMINOPHEN 500 MG TAB PO PRN (17:15)
[2020-06-06] MEDS ORDERED: NICOTINE 21MG/24 HR TOPICAL PATCH TD ONE (17:15)
[2020-06-06] MEDS ORDERED: ONDANSETRON HCL 4 MG/2 ML VIAL IV PRN (17:15)
[2020-06-06] MEDS: SODIUM CHLORIDE 0.9% 1,000 ML IV SCH (17:35)
[2020-06-06] MEDS: DOXYCYCLINE 100MG/250ML 250 ML IV SCH (17:35)
[2020-06-06] MEDS: chlordiazePOXIDE HCL 25 MG CAP PO SCH ×2 (17:36→23:58)
[2020-06-06] MEDS: ALBUTEROL SULF 2.5 MG/0.5ML(0.5%) NEB SOLN NEB SCH ×2 (18:00→23:28)
[2020-06-06] MEDS: IPRATROPIUM BROM 0.5 MG/2.5ML INH SOL NEB SCH ×2 (18:00→23:28)
[2020-06-06 19:36] VITALS: BP 118/61
[2020-06-06] MEDS: traMADol HCL 50 MG TAB PO PRN (21:30)
[2020-06-07] MEDS: SODIUM CHLORIDE 0.9% 1,000 ML IV SCH ×2 (03:27→13:50)
[2020-06-07 03:40] VITALS: BP 145/79
[2020-06-07] MEDS: DOXYCYCLINE 100MG/250ML 250 ML IV SCH ×2 (04:39→17:46)
[2020-06-07 05:00] VITALS: BP 145/79
[2020-06-07] MEDS: chlordiazePOXIDE HCL 25 MG CAP PO SCH ×4 (05:42→23:47)
[2020-06-07] MEDS: ALBUTEROL SULF 2.5 MG/0.5ML(0.5%) NEB SOLN NEB SCH ×4 (06:20→23:27)
[2020-06-07] MEDS: IPRATROPIUM BROM 0.5 MG/2.5ML INH SOL NEB SCH ×4 (06:20→23:27)
[2020-06-07 09:00] VITALS: BP 149/90
[2020-06-07] MEDS ORDERED: NICOTINE 21MG/24 HR TOPICAL PATCH TD SCH (10:00)
[2020-06-07] MEDS: THIAMINE 100mg/ml INJ (200mg/2ml VIAL) IV SCH (11:10)
[2020-06-07 12:00] VITALS: BP 143/98
[2020-06-07 16:00] VITALS: BP 149/78
[2020-06-07] MEDS: traMADol HCL 50 MG TAB PO PRN (18:11)
[2020-06-07] MEDS: FOLIC ACID 1 MG, MAGNESIUM SULF SDV 50% 8 MEQ, THIAMINE INJ 100 MG in D5W 5% 1,000 ML INJ SCH (18:13)
[2020-06-07 21:58] VITALS: BP 127/77
[2020-06-08 04:48] VITALS: BP 147/99
[2020-06-08 05:27] LABS: Basophils # (auto) 0 10 ^3/uL (0-0.2); Basophils % (auto) 0.8 % (0.0-2.0); Eosinophils # (auto) 0.2 10 ^3/uL (0-0.8); Eosinophils % (auto) 6.6 % (0.0-7.0); Hematocrit 30.2 % (41.0-53.0); Hemoglobin 10.5 g/dL (13.5-17.5); Lymphocytes # (auto) 0.9 10 ^3/uL (0.4-5.4); Lymphocytes % (auto) 28.1 % (10.0-50.0); Mean Corpuscular Hemoglobin 32.7 pg (28.0-32.0); Mean Corpuscular Hgb Conc. 34.6 g/dL (32.0-36.0); Mean Corpuscular Volume 94.7 fL (80.0-100.0); Monocytes # (auto) 0.7 10 ^3/uL (0-1.3); Neutrophils # (auto) 1.3 10 ^3/uL (1.6-8.6); Neutrophils % (auto) 42.1 % (37.0-80.0); Platelet Count (auto) 136 10^3/uL (140-450); Red Blood Cells 3.19 10^6/uL (4.5-5.90); Red Cell Distribution Width 17.1 % (11.8-14.3); White Blood Cell 3.1 10^3/uL (4.4-10.8)
[2020-06-08 05:36] LABS: Monocytes % (auto) 22.4 % (0.0-12.0)
[2020-06-08] MEDS: DOXYCYCLINE 100MG/250ML 250 ML IV SCH ×2 (05:45→17:31)
[2020-06-08] MEDS: chlordiazePOXIDE HCL 25 MG CAP PO SCH ×3 (06:05→17:56)
[2020-06-08] MEDS: ALBUTEROL SULF 2.5 MG/0.5ML(0.5%) NEB SOLN NEB SCH ×3 (07:02→18:00)
[2020-06-08] MEDS: IPRATROPIUM BROM 0.5 MG/2.5ML INH SOL NEB SCH ×3 (07:02→18:00)
[2020-06-08 08:24] LABS: Calcium 8.4 mg/dL (8.5-10.1); Potassium 3.8 mmol/L (3.5-5.1)
[2020-06-08 08:26] LABS: BUN/Creatinine Ratio 16.4; Magnesium 1.9 mg/dL (1.6-2.6)
[2020-06-08 08:43] LABS: Amphetamine Screen, Urine NEGATIVE (NEGATIVE); Barbiturate Scree,Urine NEGATIVE (NEGATIVE); Benzodiazephine Screen, Urine POSITIVE (NEGATIVE); Cannabinoid Screen, Urine NEGATIVE (NEGATIVE); Cocaine Screen, Urine NEGATIVE (NEGATIVE); Opiate Scree,Urine NEGATIVE (NEGATIVE); Phencyclidine Screen, Urine NEGATIVE (NEGATIVE)
[2020-06-08 09:15] VITALS: BP 130/94
[2020-06-08] MEDS ORDERED: TRAM50TA2 PO (09:25)
[2020-06-08] MEDS ORDERED: ALBUAER3 IN (09:25)
[2020-06-08] MEDS ORDERED: THIA100T5 PO (09:25)
[2020-06-08] MEDS ORDERED: MULT-351 PO (09:25)
[2020-06-08 09:55] VITALS: BP 130/94
[2020-06-08] MEDS: THIAMINE 100mg/ml INJ (200mg/2ml VIAL) IV SCH (10:24)
[2020-06-08] MEDS: FOLIC ACID 1 MG, MAGNESIUM SULF SDV 50% 8 MEQ, THIAMINE INJ 100 MG in D5W 5% 1,000 ML INJ SCH (12:00)
[2020-06-08] MEDS: traMADol HCL 50 MG TAB PO PRN (16:04)
[2020-06-08 16:52] VITALS: BP 144/102
[2020-06-08 22:00] VITALS: BP 143/82
[2020-06-09 05:00] VITALS: BP 158/91
[2020-06-09] MEDS: DOXYCYCLINE 100MG/250ML 250 ML IV SCH (05:15)
[2020-06-09] MEDS: chlordiazePOXIDE HCL 25 MG CAP PO SCH ×2 (05:44)
[2020-06-09] MEDS: ALBUTEROL SULF 2.5 MG/0.5ML(0.5%) NEB SOLN NEB SCH ×5 (07:38→18:16)
[2020-06-09] MEDS: IPRATROPIUM BROM 0.5 MG/2.5ML INH SOL NEB SCH ×5 (07:38→18:16)
[2020-06-09 09:00] VITALS: BP_SYST 84
[2020-06-09 13:00] VITALS: BP 128/78
[2020-06-09 17:18] VITALS: BP 119/79
[2020-06-09 20:13] VITALS: BP 119/79
[2020-06-09 22:00] VITALS: BP 120/89
[2020-06-10 05:00] VITALS: BP 139/90
[2020-06-10] MEDS: IPRATROPIUM BROM 0.5 MG/2.5ML INH SOL NEB SCH ×2 (05:52→11:27)
[2020-06-10] MEDS: ALBUTEROL SULF 2.5 MG/0.5ML(0.5%) NEB SOLN NEB SCH ×2 (05:52→11:27)
[2020-06-10 08:00] VITALS: BP 122/73
[2020-06-10 09:00] VITALS: BP 122/73
[2020-06-10 09:43] LABS: Hepatitis B Surface Antibody Negative
[2020-06-10] MEDS ORDERED: THIAMINE HCL 100 MG TAB PO SCH (10:00)
[2020-06-10] MEDS ORDERED: MULTIPLE VITAMINS W/ MINERALS TAB PO SCH (10:00)
[2020-06-10 10:49] LABS: Hepatitis B Surface Antigen Negative (Negative)
[2020-06-10 11:21] LABS: Hepatitis A Total Antibody Negative
[2020-06-10 12:03] LABS: Hepatitis B Core Total AB Negative; Hepatitis C Antibody Negative (Negative)
[2020-06-10] MEDS ORDERED: NICOTINE 21MG/24 HR TOPICAL PATCH TD ONE (12:15)
[2020-06-10 12:53] VITALS: BP 137/81
[2020-06-10] MEDS: traMADol HCL 50 MG TAB PO PRN (15:25)
[2020-06-10 16:47] VITALS: BP 147/89
== END 2020-06-10 17:46 | disposition home or self-care (01) | DRG 816 ==
LOC: EDBD 12:15 → ER 12:15 → TELE 12:16 → TELE-CENTR 06-07 03:31
PROVIDERS: ADMIT Internal Medicine; ATTEND Internal Medicine
DX: T51.0X1A Toxic effect of ethanol, accidental (unintentional), initial encounter (principal); F10.229 Alcohol dependence with intoxication, unspecified; G92 Toxic encephalopathy; S32.302A Unspecified fracture of left ilium, initial encounter for closed fracture; S32.402A Unspecified fracture of left acetabulum, initial encounter for closed fracture; E44.0 Moderate protein-calorie malnutrition; I95.9 Hypotension, unspecified; F25.9 Schizoaffective disorder, unspecified; E16.2 Hypoglycemia, unspecified; J44.9 Chronic obstructive pulmonary disease, unspecified; D64.9 Anemia, unspecified; I10 Essential (primary) hypertension; Z68.20 Body mass index [BMI] 20.0-20.9, adult; Y90.8 Blood alcohol level of 240 mg/100 ml or more; F17.210 Nicotine dependence, cigarettes, uncomplicated; Z20.822 Contact with and (suspected) exposure to COVID-19; Z59.0 Homelessness; F32.9 Major depressive disorder, single episode, unspecified; F41.9 Anxiety disorder, unspecified; R00.0 Tachycardia, unspecified; W11.XXXA Fall on and from ladder, initial encounter; Y93.89 Activity, other specified; Y99.8 Other external cause status; Y92.89 Other specified places as the place of occurrence of the external cause
CPT/HCPCS: 36415; 71045; 72170; 80048; 80053; 80307; 80320; 81001; 83605; 83735; 83880; 85007; 85025; 85027; 86704; 86706; 86708; 86803; 87040; 87340; 87426; 93306; 94640; 97163; G0378; J0696; J3490

== ENCOUNTER 2021-04-18 09:08 | Emergency (ER) | payer MEDICAID ==
[~2021-04-18] VITALS: Ht 185.4 cm; Wt 72.6 kg
[~2021-04-18 09:08] MED LIST changes: +ALBUAER3 IN; -BENZ1TAB2 PO; -HYDR50TA69 PO; -IBUP800T27 PO; -LURA80TA PO; +MULT-351 PO; +THIA100T5 PO; -TRAZ100T3 PO
[2021-04-18 10:12] LABS: Albumin 3.7 g/dL (3.4-5.0); Calcium 8.6 mg/dL (8.5-10.1); Magnesium 2.2 mg/dL (1.6-2.6); Potassium 4.4 mmol/L (3.5-5.1)
[2021-04-18 10:18] LABS: BUN/Creatinine Ratio 17.6; Bilirubin, Total 0.4 mg/dL (0.2-1.0); Total Protein 7.9 g/dL (6.4-8.2)
[2021-04-18 10:19] LABS: Basophils # (auto) 0.1 10 ^3/uL (0-0.2); Basophils % (auto) 1.5 % (0.0-2.0); Eosinophils # (auto) 0.2 10 ^3/uL (0-0.8); Eosinophils % (auto) 2.7 % (0.0-7.0); Hematocrit 42.7 % (41.0-53.0); Hemoglobin 14.5 g/dL (13.5-17.5); Lymphocytes # (auto) 1.2 10 ^3/uL (0.4-5.4); Lymphocytes % (auto) 20.7 % (10.0-50.0); Mean Corpuscular Hemoglobin 31.1 pg (28.0-32.0); Mean Corpuscular Hgb Conc. 34.1 g/dL (32.0-36.0); Mean Corpuscular Volume 91.3 fL (80.0-100.0); Monocytes # (auto) 0.7 10 ^3/uL (0-1.3); Monocytes % (auto) 12.7 % (0.0-12.0); Neutrophils # (auto) 3.6 10 ^3/uL (1.6-8.6); Neutrophils % (auto) 62.4 % (37.0-80.0); Nucleated Red Blood Cells % 0.1 %; Red Blood Cells 4.68 10^6/uL (4.5-5.90); Red Cell Distribution Width 16.3 % (11.8-14.3); White Blood Cell 5.8 10^3/uL (4.4-10.8)
[2021-04-18 16:11] VITALS: BP 139/79
== END 2021-04-18 16:14 | disposition home or self-care (01) ==
LOC: ER 09:08
DX: K52.9 Noninfective gastroenteritis and colitis, unspecified (principal); F17.210 Nicotine dependence, cigarettes, uncomplicated; Z59.00 Homelessness unspecified; Z79.899 Other long term (current) drug therapy; Z20.822 Contact with and (suspected) exposure to COVID-19
CPT/HCPCS: 36415; 71045; 80053; 83735; 84484; 85025; 87426; 93005

== ENCOUNTER 2021-10-05 10:45 | Emergency (ER) | payer MEDICAID ==
[~2021-10-05] VITALS: Ht 167.6 cm; Wt 71.7 kg
[2021-10-05 10:45] VITALS: BP 142/90
[~2021-10-05 10:45] MED LIST changes: -CEPH-509 PO; -CLIN150C PO; -PERCOT PO; -cefTRIAXone SOD 1,000 MG VL IM ONE
[2021-10-05] MEDS ORDERED: SODIUM CHLORIDE 0.9% 500 ML IV ONE (11:45)
[2021-10-05] MEDS ORDERED: SODIUM CHLORIDE 0.9% 1,000 ML IV ONE (11:45)
[2021-10-05] MEDS ORDERED: CLINDAMYCIN 900MG IV 50 ML IV ONE (15:30)
[2021-10-05 15:41] LABS: Basophils # (auto) 0 10 ^3/uL (0-0.2); Basophils % (auto) 0.5 % (0.0-2.0); Eosinophils # (auto) 0.1 10 ^3/uL (0-0.8); Hematocrit 38.7 % (41.0-53.0); Hemoglobin 13.5 g/dL (13.5-17.5); Lymphocytes # (auto) 0.8 10 ^3/uL (0.4-5.4); Lymphocytes % (auto) 14.5 % (10.0-50.0); Mean Corpuscular Hemoglobin 31.3 pg (28.0-32.0); Mean Corpuscular Hgb Conc. 34.9 g/dL (32.0-36.0); Mean Corpuscular Volume 89.6 fL (80.0-100.0); Monocytes # (auto) 0.6 10 ^3/uL (0-1.3); Monocytes % (auto) 10.5 % (0.0-12.0); Neutrophils # (auto) 4.2 10 ^3/uL (1.6-8.6); Neutrophils % (auto) 73.5 % (37.0-80.0); Red Blood Cells 4.32 10^6/uL (4.5-5.90); Red Cell Distribution Width 15.9 % (11.8-14.3); White Blood Cell 5.6 10^3/uL (4.4-10.8)
[2021-10-05 15:59] LABS: Albumin 4.3 g/dL (3.4-5.0); BUN/Creatinine Ratio 9.7; Calcium 9.1 mg/dL (8.5-10.1); Magnesium 2.3 mg/dL (1.6-2.6); Potassium 4.3 mmol/L (3.5-5.1)
[2021-10-05 16:01] LABS: Bilirubin, Total 0.4 mg/dL (0.2-1.0); Total Protein 8.3 g/dL (6.4-8.2)
[2021-10-06] MEDS ORDERED: CLIN150C PO (15:19)
== END 2021-10-05 16:27 | disposition left against medical advice (07) ==
LOC: EDBD 10:45 → ER 10:45 → EDUNIT# 10:45 → ER 16:27
DX: L03.031 Cellulitis of right toe (principal); J44.9 Chronic obstructive pulmonary disease, unspecified; F17.210 Nicotine dependence, cigarettes, uncomplicated; Z79.899 Other long term (current) drug therapy
CPT/HCPCS: 36415; 71046; 73700; 80053; 83735; 85025; 93005; 96361; 96365; 99285; J3490; J7030; J7040

== ENCOUNTER → 2021-10-05 | Emergency (ER) | payer MEDICAID ==
[~2021-10-05] VITALS: Ht 182.9 cm; Wt 71.2 kg
[~2021-10-05] MED LIST changes: +CEPH-509 PO; +CLIN150C PO; +PERCOT PO; +cefTRIAXone SOD 1,000 MG VL IM ONE
[2021-10-05 21:11] VITALS: BP 99/55
== END | disposition home or self-care (01) ==
LOC: ER 20:18
DX: L03.031 Cellulitis of right toe (principal); J44.9 Chronic obstructive pulmonary disease, unspecified; F17.210 Nicotine dependence, cigarettes, uncomplicated; Z59.00 Homelessness unspecified
CPT/HCPCS: 96372; 99283; J0696

== ENCOUNTER 2021-10-06 10:04 | Emergency (ER) | payer MEDICAID ==
[~2021-10-06] VITALS: Ht 182.9 cm; Wt 71.7 kg
[2021-10-06 10:30] VITALS: BP 114/63
[2021-10-06] MEDS ORDERED: SODIUM CHLORIDE 0.9% 500 ML IV ONE (11:30)
[2021-10-06] MEDS ORDERED: CLINDAMYCIN 600MG IV 50 ML IV ONE (11:45)
[2021-10-06 12:25] LABS: Basophils # (auto) 0 10 ^3/uL (0-0.2); Basophils % (auto) 0.4 % (0.0-2.0); Eosinophils # (auto) 0 10 ^3/uL (0-0.8); Eosinophils % (auto) 0.2 % (0.0-7.0); Hematocrit 37.4 % (41.0-53.0); Hemoglobin 12.6 g/dL (13.5-17.5); Lymphocytes # (auto) 0.7 10 ^3/uL (0.4-5.4); Lymphocytes % (auto) 16.4 % (10.0-50.0); Mean Corpuscular Hemoglobin 30.3 pg (28.0-32.0); Mean Corpuscular Hgb Conc. 33.6 g/dL (32.0-36.0); Mean Corpuscular Volume 89.9 fL (80.0-100.0); Monocytes # (auto) 0.4 10 ^3/uL (0-1.3); Monocytes % (auto) 9.6 % (0.0-12.0); Neutrophils # (auto) 3.2 10 ^3/uL (1.6-8.6); Neutrophils % (auto) 73.4 % (37.0-80.0); Nucleated Red Blood Cells % 0.1 %; Red Blood Cells 4.16 10^6/uL (4.5-5.90); White Blood Cell 4.4 10^3/uL (4.4-10.8)
[2021-10-06 12:42] LABS: INR 0.99 (0.9-1.15); Partial Thromboplastin Time 27.1 sec (23.6-33.0)
[2021-10-06 12:49] LABS: Albumin 3.9 g/dL (3.4-5.0); Calcium 8.9 mg/dL (8.5-10.1); Potassium 4.2 mmol/L (3.5-5.1)
[2021-10-06 12:52] LABS: BUN/Creatinine Ratio 13.2; Bilirubin, Total 0.3 mg/dL (0.2-1.0); Total Protein 8.2 g/dL (6.4-8.2)
[2021-10-06] MEDS ORDERED: CLIN150C PO (15:19)
[2021-10-08] MEDS ORDERED: PERCOT PO (21:40)
[2021-10-08] MEDS ORDERED: CEPH-509 PO (21:40)
== END 2021-10-07 01:59 | disposition home or self-care (01) ==
LOC: ER 10:17
DX: L03.031 Cellulitis of right toe (principal); J44.9 Chronic obstructive pulmonary disease, unspecified; F17.210 Nicotine dependence, cigarettes, uncomplicated; Z59.00 Homelessness unspecified; Z79.899 Other long term (current) drug therapy; Z20.822 Contact with and (suspected) exposure to COVID-19
CPT/HCPCS: 36415; 73700; 80053; 85025; 85610; 85652; 85730

== ENCOUNTER → 2021-10-07 | Emergency (ER) | payer MEDICAID ==
[~2021-10-07] VITALS: Ht 182.9 cm; Wt 71.7 kg
[~2021-10-07] MED LIST changes: +CEPH-509 PO; +CLIN150C PO; +PERCOT PO
[2021-10-07 08:26] VITALS: BP 116/75
== END | disposition left against medical advice (07) ==
LOC: ER 08:19
DX: M79.671 Pain in right foot (principal); Z53.21 Procedure and treatment not carried out due to patient leaving prior to being seen by health care provider

== ENCOUNTER 2021-10-08 16:54 | Emergency (ER) | payer MEDICAID ==
[~2021-10-08] VITALS: Ht 182.9 cm; Wt 71.7 kg
[~2021-10-08 16:54] MED LIST changes: -CEPH-509 PO; -PERCOT PO
[2021-10-08 17:37] VITALS: BP 119/73
[2021-10-08] MEDS ORDERED: OXYCODONE W/ ACETAMINOPHEN 5/325MG TABLET PO ONE (21:15)
[2021-10-08] MEDS ORDERED: DexAMETHasone SOD PHOS 10MG/1ML VIAL INJ IM ONE (21:15)
[2021-10-08] MEDS ORDERED: CEPH-509 PO (21:40)
[2021-10-08] MEDS ORDERED: PERCOT PO (21:40)
[2021-10-17] MEDS ORDERED: PERCOT PO (11:27)
[2021-10-17] MEDS ORDERED: DOXY-332 PO (11:30)
== END 2021-10-08 22:16 | disposition home or self-care (01) ==
LOC: ER 16:54
DX: S90.929A Unspecified superficial injury of unspecified foot, initial encounter (principal); J44.9 Chronic obstructive pulmonary disease, unspecified; F41.9 Anxiety disorder, unspecified; F32.9 Major depressive disorder, single episode, unspecified; X58.XXXA Exposure to other specified factors, initial encounter; Y93.89 Activity, other specified; Y92.89 Other specified places as the place of occurrence of the external cause; Y99.8 Other external cause status
CPT/HCPCS: 96372; 99283; J1100

== ENCOUNTER → 2021-10-08 | Emergency (ER) | payer MEDICAID ==
[~2021-10-08] VITALS: Ht 182.9 cm; Wt 71.7 kg
[2021-10-08 05:12] VITALS: BP 133/85
== END | disposition left against medical advice (07) ==
LOC: ER 04:37
DX: M79.671 Pain in right foot (principal); Z53.21 Procedure and treatment not carried out due to patient leaving prior to being seen by health care provider

== ENCOUNTER 2021-10-09 02:30 | Emergency (ER) | payer MEDICAID | END 2021-10-09 02:54 | disposition left against medical advice (07) | LOC: ER 02:30 | DX: Z79.891 Long term (current) use of opiate analgesic (principal); Z53.21 Procedure and treatment not carried out due to patient leaving prior to being seen by health care provider ==

== ENCOUNTER → 2021-10-09 | Emergency (ER) | payer MEDICAID ==
[~2021-10-09] MED LIST changes: +CEPH-509 PO; +PERCOT PO
== END | disposition left against medical advice (07) ==
LOC: ER 04:08
DX: M79.671 Pain in right foot (principal); Z53.21 Procedure and treatment not carried out due to patient leaving prior to being seen by health care provider

== ENCOUNTER 2021-10-10 01:17 | Emergency (ER) | payer MEDICAID ==
[~2021-10-10] VITALS: Ht 162.6 cm; Wt 59.0 kg
[2021-10-10 01:40] VITALS: BP 128/85
== END 2021-10-10 05:51 | disposition left against medical advice (07) ==
LOC: EDBD 01:17 → ER 01:17
DX: M25.512 Pain in left shoulder (principal); Z53.21 Procedure and treatment not carried out due to patient leaving prior to being seen by health care provider
CPT/HCPCS: 73030

== ENCOUNTER → 2021-10-10 | Emergency (ER) | payer MEDICAID | END | disposition left against medical advice (07) | LOC: ER 23:52 | DX: M79.673 Pain in unspecified foot (principal); Z53.21 Procedure and treatment not carried out due to patient leaving prior to being seen by health care provider ==

== ENCOUNTER 2021-10-11 22:32 | Inpatient (IN) | payer MEDICAID ==
[~2021-10-11] VITALS: Ht 182.9 cm; Wt 73.8 kg
[2021-10-12] MEDS ORDERED: METOCLOPRAMIDE HCL 5MG/ml INJ 2ml VIAL IV ONE (08:45)
[2021-10-12] MEDS ORDERED: SODIUM CHLORIDE 0.9% 500 ML IV ONE (08:45)
[2021-10-12] MEDS ORDERED: KETOROLAC TROMETH 30 MG/ML 1ML VIAL IV ONE (08:45)
[2021-10-12] MEDS ORDERED: SODIUM CHLORIDE 0.9% 1,000 ML IV ONE (08:45)
[2021-10-12 09:22] LABS: Basophils # (auto) 0 10 ^3/uL (0-0.2); Basophils % (auto) 0.3 % (0.0-2.0); Eosinophils # (auto) 0 10 ^3/uL (0-0.8); Eosinophils % (auto) 0.1 % (0.0-7.0); Hemoglobin 12.7 g/dL (13.5-17.5); Lymphocytes % (auto) 15.8 % (10.0-50.0); Mean Corpuscular Hemoglobin 30.2 pg (28.0-32.0); Mean Corpuscular Hgb Conc. 33.3 g/dL (32.0-36.0); Mean Corpuscular Volume 90.5 fL (80.0-100.0); Monocytes # (auto) 0.7 10 ^3/uL (0-1.3); Monocytes % (auto) 11.2 % (0.0-12.0); Neutrophils # (auto) 4.6 10 ^3/uL (1.6-8.6); Neutrophils % (auto) 72.6 % (37.0-80.0); Red Cell Distribution Width 16.2 % (11.8-14.3); White Blood Cell 6.4 10^3/uL (4.4-10.8)
[2021-10-12 09:41] LABS: Albumin 3.8 g/dL (3.4-5.0); Calcium 8.4 mg/dL (8.5-10.1); Magnesium 2.2 mg/dL (1.6-2.6); Potassium 3.6 mmol/L (3.5-5.1)
[2021-10-12 09:44] LABS: Bilirubin, Total 0.9 mg/dL (0.2-1.0); Total Protein 7.8 g/dL (6.4-8.2)
[2021-10-12] MEDS ORDERED: MORPHINE SULFATE INJ 2 MG/ml SYRG IV PRN (11:15)
[2021-10-12] MEDS ORDERED: PIPERACILLIN-TAZO 4.5GM 100 ML IV ONE (11:15)
[2021-10-12] MEDS ORDERED: ONDANSETRON HCL 4 MG/2 ML VIAL IV PRN (11:15)
[2021-10-12] MEDS ORDERED: ACETAMINOPHEN 325 MG TAB PO PRN (11:15)
[2021-10-12] MEDS ORDERED: VANCOMYCIN PER PHARMACY 0 MG IV SCH (11:15)
[2021-10-12] MEDS ORDERED: NITROGLYCERIN 0.4 MG SL TAB SL PRN (11:15)
[2021-10-12] MEDS ORDERED: DOCUSATE SOD 100 MG CAP PO PRN (11:15)
[2021-10-12] MEDS: PIPERACILLIN-TAZOB 3.375GM 100 ML IV SCH ×3 (12:02→23:51)
[2021-10-12] MEDS: SODIUM CHLORIDE 0.9% 1,000 ML IV SCH (12:02)
[2021-10-12] MEDS: VANCOMYCIN 1GM/250ML 250 ML IV SCH ×2 (15:27→21:49)
[2021-10-12 17:00] VITALS: BP 133/78
[2021-10-12] MEDS ORDERED: ALBUTEROL SULF 2.5 MG/0.5ML(0.5%) NEB SOLN NEB PRN (21:00)
[2021-10-12] MEDS: ASCORBIC ACID 500 MG TAB PO SCH (21:49)
[2021-10-12] MEDS: HYDROcodone-ACET 5/325MG TAB PO PRN (21:50)
[2021-10-12 22:00] VITALS: BP 142/80
[2021-10-13 03:00] VITALS: BP 142/80
[2021-10-13] MEDS: SODIUM CHLORIDE 0.9% 1,000 ML IV SCH ×2 (03:55→22:32)
[2021-10-13 04:45] LABS: Urine Bacteria NONE SEEN /hpf (None Seen); Urine Blood Negative /uL (Negative); Urine Specific Gravity 1.013 (1.001-1.035); Urine WBC <1 /hpf (0 - 3)
[2021-10-13 05:00] VITALS: BP 144/85
[2021-10-13] MEDS: PIPERACILLIN-TAZOB 3.375GM 100 ML IV SCH ×4 (05:14→23:52)
[2021-10-13] MEDS: HYDROcodone-ACET 5/325MG TAB PO PRN ×3 (05:15→16:09)
[2021-10-13 05:20] LABS: Basophils # (auto) 0 10 ^3/uL (0-0.2); Basophils % (auto) 0.4 % (0.0-2.0); Eosinophils # (auto) 0.2 10 ^3/uL (0-0.8); Eosinophils % (auto) 4.3 % (0.0-7.0); Hematocrit 34.7 % (41.0-53.0); Hemoglobin 11.7 g/dL (13.5-17.5); Lymphocytes # (auto) 0.7 10 ^3/uL (0.4-5.4); Lymphocytes % (auto) 16.6 % (10.0-50.0); Mean Corpuscular Hemoglobin 30.6 pg (28.0-32.0); Mean Corpuscular Hgb Conc. 33.7 g/dL (32.0-36.0); Mean Corpuscular Volume 90.8 fL (80.0-100.0); Monocytes # (auto) 0.3 10 ^3/uL (0-1.3); Neutrophils % (auto) 71.7 % (37.0-80.0); Red Blood Cells 3.82 10^6/uL (4.5-5.90); White Blood Cell 4.3 10^3/uL (4.4-10.8)
[2021-10-13 05:38] LABS: Albumin 2.8 g/dL (3.4-5.0); Potassium 3.4 mmol/L (3.5-5.1)
[2021-10-13 05:44] LABS: BUN/Creatinine Ratio 15.3; Bilirubin, Total 0.9 mg/dL (0.2-1.0); Total Protein 6.3 g/dL (6.4-8.2)
[2021-10-13] MEDS: VANCOMYCIN 1GM/250ML 250 ML IV SCH ×3 (07:35→22:32)
[2021-10-13 08:48] VITALS: BP 126/74
[2021-10-13] MEDS: ASCORBIC ACID 500 MG TAB PO SCH ×2 (09:22→22:21)
[2021-10-13] MEDS: ENOXAPARIN SOD 40 MG/0.4 ML SYRINGE SC SCH (09:22)
[2021-10-13 12:35] VITALS: BP 132/80
[2021-10-13 16:27] VITALS: BP 136/77
[2021-10-13 21:35] VITALS: BP 140/79
[2021-10-14 04:37] VITALS: BP 152/87
[2021-10-14] MEDS: HYDROcodone-ACET 5/325MG TAB PO PRN ×4 (04:39→21:30)
[2021-10-14] MEDS: PIPERACILLIN-TAZOB 3.375GM 100 ML IV SCH ×4 (05:38→23:57)
[2021-10-14] MEDS: VANCOMYCIN 1GM/250ML 250 ML IV SCH ×3 (06:44→20:01)
[2021-10-14 06:47] LABS: Basophils # (auto) 0 10 ^3/uL (0-0.2); Basophils % (auto) 0.3 % (0.0-2.0); Eosinophils # (auto) 0.3 10 ^3/uL (0-0.8); Eosinophils % (auto) 7.4 % (0.0-7.0); Hemoglobin 11.7 g/dL (13.5-17.5); Lymphocytes # (auto) 0.6 10 ^3/uL (0.4-5.4); Lymphocytes % (auto) 12.5 % (10.0-50.0); Mean Corpuscular Hemoglobin 31.6 pg (28.0-32.0); Mean Corpuscular Hgb Conc. 34.5 g/dL (32.0-36.0); Mean Corpuscular Volume 91.7 fL (80.0-100.0); Monocytes # (auto) 0.5 10 ^3/uL (0-1.3); Monocytes % (auto) 11.1 % (0.0-12.0); Neutrophils # (auto) 3.1 10 ^3/uL (1.6-8.6); Neutrophils % (auto) 68.7 % (37.0-80.0); Red Blood Cells 3.71 10^6/uL (4.5-5.90); Red Cell Distribution Width 15.7 % (11.8-14.3); White Blood Cell 4.6 10^3/uL (4.4-10.8)
[2021-10-14 06:56] LABS: Albumin 2.6 g/dL (3.4-5.0); Calcium 7.8 mg/dL (8.5-10.1); Potassium 3.5 mmol/L (3.5-5.1)
[2021-10-14 06:59] LABS: BUN/Creatinine Ratio 11.3; Phosphorus 3.5 mg/dL (2.5-4.90)
[2021-10-14 09:00] VITALS: BP 143/84
[2021-10-14] MEDS: ASCORBIC ACID 500 MG TAB PO SCH ×2 (09:09→21:30)
[2021-10-14] MEDS: ENOXAPARIN SOD 40 MG/0.4 ML SYRINGE SC SCH (09:10)
[2021-10-14 13:03] VITALS: BP 135/84
[2021-10-14] MEDS: SODIUM CHLORIDE 0.9% 1,000 ML IV SCH (14:00)
[2021-10-14 17:00] VITALS: BP 149/89
[2021-10-15 05:02] VITALS: BP 152/78
[2021-10-15] MEDS: VANCOMYCIN 1GM/250ML 250 ML IV SCH ×2 (05:27→16:31)
[2021-10-15] MEDS: SODIUM CHLORIDE 0.9% 1,000 ML IV SCH ×2 (05:27→22:35)
[2021-10-15] MEDS: PIPERACILLIN-TAZOB 3.375GM 100 ML IV SCH ×3 (06:42→18:30)
[2021-10-15 09:01] LABS: Partial Thromboplastin Time 27.3 sec (23.6-33.0)
[2021-10-15 09:09] VITALS: BP 150/91
[2021-10-15] MEDS ORDERED: ceFAZolin 1GM/50ML 100 ML IV ONE (10:25)
[2021-10-15] MEDS ORDERED: ceFAZolin 1GM VL ONE (10:39)
[2021-10-15] MEDS ORDERED: MEPERIDINE HCL (50 MG/ML) 1 ML VIAL ONE (10:50)
[2021-10-15] MEDS ORDERED: MIDAZOLAM HCL 2MG/2ML 2ml VIAL (1mg/ml) ONE (10:50)
[2021-10-15] MEDS ORDERED: fentaNYL CITRATE 100 MCG/2 ML VL ONE (10:50)
[2021-10-15] MEDS ORDERED: MIDAZOLAM HCL 2MG/2ML 2ml VIAL (1mg/ml) IV PRN (11:00)
[2021-10-15] MEDS ORDERED: ONDANSETRON HCL 4 MG/2 ML VIAL IV PRN (11:00)
[2021-10-15] MEDS ORDERED: HYDROmorphone HCL 2 MG/ML VL/or syr IV PRN (11:00)
[2021-10-15] MEDS ORDERED: ePHEDrine SULFATE 50 MG/ML AMP IV PRN (11:00)
[2021-10-15] MEDS ORDERED: MORPHINE SULFATE 4 MG/ML SYR/VIAL IV PRN (11:00)
[2021-10-15] MEDS ORDERED: hydrALAZINE HCL 20 MG/ML VL IV PRN (11:00)
[2021-10-15] MEDS ORDERED: ACCU-CHEK COMFORT CURVE STRIP VI ONE (11:00)
[2021-10-15] MEDS ORDERED: LABETALOL HCL 5 MG/ML 4ML SYRINGE IV PRN (11:00)
[2021-10-15] MEDS ORDERED: DexAMETHasone SOD PHOS 10MG/1ML VIAL INJ ONE (11:11)
[2021-10-15] MEDS ORDERED: PROPOFOL 10 MG/ML 20 ML IV ONE (11:11)
[2021-10-15] MEDS: ASCORBIC ACID 500 MG TAB PO SCH ×2 (13:03→21:04)
[2021-10-15] MEDS: ENOXAPARIN SOD 40 MG/0.4 ML SYRINGE SC SCH (13:03)
[2021-10-15 16:14] VITALS: BP 131/87
[2021-10-15] MEDS: HYDROcodone-ACET 5/325MG TAB PO PRN ×2 (16:47→21:04)
[2021-10-15 17:04] VITALS: BP 131/87
[2021-10-15 22:00] VITALS: BP 136/83
[2021-10-16] MEDS: PIPERACILLIN-TAZOB 3.375GM 100 ML IV SCH ×2 (00:13→05:25)
[2021-10-16] MEDS: HYDROcodone-ACET 5/325MG TAB PO PRN ×2 (01:18→09:36)
[2021-10-16] MEDS: VANCOMYCIN 1GM/250ML 250 ML IV SCH (02:08)
[2021-10-16 05:00] VITALS: BP 125/80
[2021-10-16 09:17] VITALS: BP 148/90
[2021-10-16] MEDS: ASCORBIC ACID 500 MG TAB PO SCH (09:33)
[2021-10-16] MEDS: ENOXAPARIN SOD 40 MG/0.4 ML SYRINGE SC SCH (09:35)
[2021-10-17] MEDS ORDERED: PERCOT PO (11:27)
[2021-10-17] MEDS ORDERED: DOXY-332 PO (11:30)
== END 2021-10-16 12:00 | disposition left against medical advice (07) | DRG 342 ==
LOC: ER 22:32 → OVERFLOW 10-12 11:19 → CENTRAL 10-12 13:35
PROVIDERS: ADMIT Internal Medicine; ATTEND Internal Medicine
PROC: 0JBQ0ZZ Excision of Right Foot Subcutaneous Tissue and Fascia, Open Approach (ICD-10-PCS; 2021-10-15)
PROC: 0JBR0ZZ Excision of Left Foot Subcutaneous Tissue and Fascia, Open Approach (ICD-10-PCS; principal; 2021-10-15 10:51)
DX: S42.032A Displaced fracture of lateral end of left clavicle, initial encounter for closed fracture (principal); M86.171 Other acute osteomyelitis, right ankle and foot; E87.1 Hypo-osmolality and hyponatremia; E88.09 Other disorders of plasma-protein metabolism, not elsewhere classified; F25.9 Schizoaffective disorder, unspecified; F17.210 Nicotine dependence, cigarettes, uncomplicated; J44.9 Chronic obstructive pulmonary disease, unspecified; Z20.822 Contact with and (suspected) exposure to COVID-19; Z59.00 Homelessness unspecified; M19.90 Unspecified osteoarthritis, unspecified site; Z53.29 Procedure and treatment not carried out because of patient's decision for other reasons; G62.9 Polyneuropathy, unspecified; L97.519 Non-pressure chronic ulcer of other part of right foot with unspecified severity; L97.529 Non-pressure chronic ulcer of other part of left foot with unspecified severity; S82.892A Other fracture of left lower leg, initial encounter for closed fracture; W01.0XXA Fall on same level from slipping, tripping and stumbling without subsequent striking against object, initial encounter; Z59.02 Unsheltered homelessness; Y93.89 Activity, other specified; Y92.89 Other specified places as the place of occurrence of the external cause; Y99.8 Other external cause status; X31.XXXA Exposure to excessive natural cold, initial encounter
CPT/HCPCS: 36415; 71046; 73030; 73700; 73718; 80048; 80053; 80069; 80202; 81001; 82565; 83735; 85025; 85610; 85730; 87070; 87075; 87077; 87186; 87205; 93925; 96361; 96374; 97110; 97116; 97163; 97530; G0378; J0690; J1100; J1885; J2250; J2543; J2704

== ENCOUNTER 2021-10-16 15:55 | Inpatient (IN) | payer MEDICAID ==
[~2021-10-16] VITALS: Ht 182.9 cm; Wt 71.2 kg
[2021-10-16] MEDS ORDERED: SODIUM CHLORIDE 0.9% 1,000 ML IV ONE ×2 (17:45→23:45)
[2021-10-16] MEDS ORDERED: VANCOMYCIN 1GM/250ML 250 ML IV ONE (18:00)
[2021-10-16 19:42] LABS: Hematocrit 34.6 % (41.0-53.0); Hemoglobin 11.7 g/dL (13.5-17.5); Mean Corpuscular Hemoglobin 31.2 pg (28.0-32.0); Mean Corpuscular Hgb Conc. 33.8 g/dL (32.0-36.0); Mean Corpuscular Volume 92.4 fL (80.0-100.0); Red Blood Cells 3.75 10^6/uL (4.5-5.90); Red Cell Distribution Width 16.4 % (11.8-14.3); White Blood Cell 4.7 10^3/uL (4.4-10.8)
[2021-10-16 19:55] LABS: Band Neutrophils % (manual) 0; Basophils % (manual) 0 (0.0-2.0); Blast Cells 0; Metamyelocytes % 0; Monocytes % (manual) 0 (0-12); Myelocytes % 0; Promyelocytes % 0; Reactive Lymphocytes 0
[2021-10-16 19:56] LABS: Albumin 3.5 g/dL (3.4-5.0); Potassium 3.4 mmol/L (3.5-5.1)
[2021-10-16 19:58] LABS: Lactic Acid w/Reflex 2.9 mmol/L (0.4-2.0)
[2021-10-16 20:01] LABS: BUN/Creatinine Ratio 10.3; Bilirubin, Total 0.3 mg/dL (0.2-1.0); Total Protein 7.3 g/dL (6.4-8.2)
[2021-10-16 20:36] LABS: Eosinophils % (manual) 2 (0-7); Lymphocytes % (manual) 24 (10.0-50.0)
[2021-10-17] MEDS ORDERED: ACETAMINOPHEN 325 MG TAB PO PRN
[2021-10-17] MEDS ORDERED: hydrALAZINE HCL 10 MG TAB PO PRN
[2021-10-17] MEDS ORDERED: SODIUM CHLORIDE 0.9% 1,000 ML IV ONE
[2021-10-17] MEDS ORDERED: ONDANSETRON HCL 4 MG/2 ML VIAL IV PRN
[2021-10-17] MEDS ORDERED: VANCOMYCIN PER PHARMACY 0 MG IV SCH
[2021-10-17 00:55] LABS: Amphetamine Screen, Urine NEGATIVE (NEGATIVE); Barbiturate Scree,Urine NEGATIVE (NEGATIVE); Benzodiazephine Screen, Urine NEGATIVE (NEGATIVE); Cannabinoid Screen, Urine NEGATIVE (NEGATIVE); Cocaine Screen, Urine NEGATIVE (NEGATIVE); Opiate Scree,Urine NEGATIVE (NEGATIVE); Phencyclidine Screen, Urine NEGATIVE (NEGATIVE)
[2021-10-17 01:10] LABS: Hemoglobin 11.3 g/dL (13.5-17.5); Mean Corpuscular Hemoglobin 31.4 pg (28.0-32.0); Mean Corpuscular Hgb Conc. 33.2 g/dL (32.0-36.0); Mean Corpuscular Volume 94.7 fL (80.0-100.0); Red Blood Cells 3.59 10^6/uL (4.5-5.90); Red Cell Distribution Width 16.8 % (11.8-14.3); White Blood Cell 4.2 10^3/uL (4.4-10.8)
[2021-10-17 01:20] LABS: Band Neutrophils % (manual) 0; Basophils % (manual) 0 (0.0-2.0); Blast Cells 0; Metamyelocytes % 0; Myelocytes % 0; Promyelocytes % 0; Reactive Lymphocytes 0
[2021-10-17 01:30] LABS: BUN/Creatinine Ratio 12.5; Potassium 3.7 mmol/L (3.5-5.1)
[2021-10-17 02:01] LABS: Lymphocytes % (manual) 21 (10.0-50.0)
[2021-10-17 02:02] LABS: Eosinophils % (manual) 3 (0-7); Monocytes % (manual) 21 (0-12)
[2021-10-17] MEDS ORDERED: PIPERACILLIN-TAZOB 3.375GM 100 ML IV SCH ×2 (06:00→08:00)
[2021-10-17] MEDS ORDERED: VANCOMYCIN 1GM/250ML 250 ML IV ONE (06:00)
[2021-10-17 09:00] VITALS: BP 154/85
[2021-10-17] MEDS: HYDROcodone-ACET 5/325MG TAB PO PRN ×2 (10:37→17:25)
[2021-10-17] MEDS ORDERED: PERCOT PO ×2 (11:27)
[2021-10-17] MEDS ORDERED: DOXY-332 PO ×2 (11:30)
[2021-10-17 12:36] VITALS: BP 154/88
[2021-10-17 13:00] VITALS: BP 136/72
[2021-10-17 17:00] VITALS: BP 134/76
[2021-10-17] MEDS ORDERED: PIPERACILLIN-TAZOB 3.375GM 100 ML IV ONE (17:00)
[2021-10-17] MEDS: VANCOMYCIN 1GM/250ML 250 ML IV SCH (17:23)
[2021-10-17 22:00] VITALS: BP 130/75
[2021-10-18 05:00] VITALS: BP 144/89
[2021-10-18] MEDS: VANCOMYCIN 1GM/250ML 250 ML IV SCH ×2 (05:16→22:00)
[2021-10-18] MEDS: PIPERACILLIN-TAZOB 3.375GM 100 ML IV SCH ×3 (06:03→22:06)
[2021-10-18 08:19] LABS: Hematocrit 36.9 % (41.0-53.0); Hemoglobin 12.3 g/dL (13.5-17.5); Mean Corpuscular Hemoglobin 30.6 pg (28.0-32.0); Mean Corpuscular Hgb Conc. 33.2 g/dL (32.0-36.0); Mean Corpuscular Volume 92.2 fL (80.0-100.0); Red Cell Distribution Width 16.6 % (11.8-14.3); White Blood Cell 4.4 10^3/uL (4.4-10.8)
[2021-10-18 08:24] LABS: Band Neutrophils % (manual) 0; Basophils % (manual) 0 (0.0-2.0); Blast Cells 0; Metamyelocytes % 0; Myelocytes % 0; Promyelocytes % 0; Reactive Lymphocytes 0
[2021-10-18 08:29] LABS: Calcium 8.5 mg/dL (8.5-10.1); Potassium 3.8 mmol/L (3.5-5.1)
[2021-10-18 08:31] LABS: BUN/Creatinine Ratio 15.6
[2021-10-18 09:00] VITALS: BP 173/84
[2021-10-18] MEDS: HYDROcodone-ACET 5/325MG TAB PO PRN ×2 (12:05→18:17)
[2021-10-18 13:00] VITALS: BP_SYST 155; BP_SYST 160; BP_DIAS 56; BP_DIAS 88
[2021-10-18 13:06] LABS: Eosinophils % (manual) 4 (0-7); Lymphocytes % (manual) 23 (10.0-50.0); Monocytes % (manual) 19 (0-12)
[2021-10-18 17:25] VITALS: BP 139/89
[2021-10-18] MEDS ORDERED: VANCOMYCIN 1GM/250ML 250 ML IV SCH ×2 (17:45→18:00)
[2021-10-18 22:00] VITALS: BP 140/97
[2021-10-19 05:00] VITALS: BP 144/92
[2021-10-19] MEDS: PIPERACILLIN-TAZOB 3.375GM 100 ML IV SCH (05:11)
[2021-10-19] MEDS: HYDROcodone-ACET 5/325MG TAB PO PRN (06:51)
[2021-10-19 07:30] LABS: Albumin 3.2 g/dL (3.4-5.0); Calcium 8.7 mg/dL (8.5-10.1); Potassium 3.8 mmol/L (3.5-5.1)
[2021-10-19 07:32] LABS: BUN/Creatinine Ratio 14.8; Phosphorus 2.9 mg/dL (2.5-4.90)
[2021-10-19 07:40] LABS: Hematocrit 37.5 % (41.0-53.0); Hemoglobin 12.4 g/dL (13.5-17.5); Mean Corpuscular Hemoglobin 30.6 pg (28.0-32.0); Mean Corpuscular Hgb Conc. 33.1 g/dL (32.0-36.0); Mean Corpuscular Volume 92.4 fL (80.0-100.0); Red Blood Cells 4.06 10^6/uL (4.5-5.90); Red Cell Distribution Width 16.6 % (11.8-14.3); White Blood Cell 4.1 10^3/uL (4.4-10.8)
[2021-10-19 07:53] LABS: Band Neutrophils % (manual) 0; Basophils % (manual) 0 (0.0-2.0); Blast Cells 0; Metamyelocytes % 0; Myelocytes % 0; Promyelocytes % 0; Reactive Lymphocytes 0
[2021-10-19 08:00] VITALS: BP 140/80
[2021-10-19] MEDS: VANCOMYCIN 1GM/250ML 250 ML IV SCH (10:06)
[2021-10-19 16:54] LABS: Eosinophils % (manual) 7 (0-7); Lymphocytes % (manual) 29 (10.0-50.0); Monocytes % (manual) 13 (0-12)
== END 2021-10-19 14:57 | disposition left against medical advice (07) | DRG 351 ==
LOC: ER 15:55 → TELE 23:51 → TELE-WESTW 10-17 08:18
PROVIDERS: ADMIT Nurse Practitioner Family; ATTEND Internal Medicine
DX: M87.874 Other osteonecrosis, right foot (principal); E87.2 Acidosis; I95.9 Hypotension, unspecified; E86.0 Dehydration; L03.115 Cellulitis of right lower limb; F10.229 Alcohol dependence with intoxication, unspecified; F17.210 Nicotine dependence, cigarettes, uncomplicated; I10 Essential (primary) hypertension; F32.A Depression, unspecified; F41.9 Anxiety disorder, unspecified; M87.875 Other osteonecrosis, left foot; Z20.822 Contact with and (suspected) exposure to COVID-19; J44.9 Chronic obstructive pulmonary disease, unspecified; Z53.29 Procedure and treatment not carried out because of patient's decision for other reasons; Z59.00 Homelessness unspecified; Z91.19 Patient's noncompliance with other medical treatment and regimen
CPT/HCPCS: 36415; 71045; 80048; 80053; 80069; 80202; 80307; 80320; 83605; 85007; 85025; 85027; 87040; 93925; 96361; 96365; 96367; G0378; J2543

== ENCOUNTER → 2021-10-19 | Emergency (ER) | payer MEDICAID ==
[~2021-10-19] VITALS: Ht 182.9 cm; Wt 81.6 kg
[~2021-10-19] MED LIST changes: +DOXY-332 PO
[2021-10-19 17:20] VITALS: BP 146/86
== END | disposition home or self-care (01) ==
LOC: ER 14:08
DX: M79.672 Pain in left foot (principal); M79.671 Pain in right foot; F20.9 Schizophrenia, unspecified; F10.10 Alcohol abuse, uncomplicated; J44.9 Chronic obstructive pulmonary disease, unspecified; F17.210 Nicotine dependence, cigarettes, uncomplicated; Z59.00 Homelessness unspecified; Z79.899 Other long term (current) drug therapy; Z79.2 Long term (current) use of antibiotics; Y90.9 Presence of alcohol in blood, level not specified

== ENCOUNTER 2021-10-20 11:08 | Emergency (ER) | payer MEDICAID ==
[~2021-10-20] VITALS: Ht 182.9 cm; Wt 71.7 kg
[2021-10-20 11:30] VITALS: BP 111/87
== END 2021-10-20 11:46 | disposition left against medical advice (07) ==
LOC: ER 11:08
DX: T65.891A Toxic effect of other specified substances, accidental (unintentional), initial encounter (principal); Z53.21 Procedure and treatment not carried out due to patient leaving prior to being seen by health care provider; Y92.89 Other specified places as the place of occurrence of the external cause